=== PATIENT | female | born 1945 | race Caucasian/White ===

== ENCOUNTER 2022-11-09 12:49 | Observation (INO) ==
[2022-11-09 13:34] LABS: Basophils # (auto) 0.04 K/uL (0-0.2); Basophils % (auto) 0.2 %; Hematocrit (blood only) 40.7 % (34.1-44.9); Hemoglobin 13.6 g/dl (12.0-16.0); Immature Granulocytes # (auto) 0.08 K/uL (0.00-0.02); Immature Granulocytes % (auto) 0.5 %; Lymphocytes # (auto) 1.22 K/uL (1.2-3.4); Lymphocytes % (auto) 7.1 %; Mean Corpuscular Hemoglobin 29.6 pg (25.0-34.0); Mean Corpuscular Hgb Conc 33.4 g/dL (32.0-36.0); Mean Corpuscular Volume 88.7 fL (80.0-100.0); Mean Platelet Volume 10.1 fL (9.4-12.3); Monocytes # (auto) 0.95 K/uL (0.24-0.82); Monocytes % (auto) 5.5 %; Neutrophils # (auto) 14.97 K/uL (1.4-6.5); Neutrophils % (auto) 86.7 %; Platelet Count 268 K/uL (130-400); RDW Coefficient of Variation 13.3 % (11.5-14.5); RDW Standard Deviation 43.4 fL (36.4-46.3); Red Blood Count 4.59 M/uL (3.93-5.22); White Blood Count 17.26 K/ul (4.8-10.8)
[2022-11-09 13:54] LABS: Albumin Globulin Ratio 1.4 (0.9-2); Albumin Level 4.5 gm/dl (3.4-5.0); BUN Creatinine Ratio 23.1 (10-20); Bilirubin,Total 0.5 mg/dl (0.2-1.0); Calcium 9.3 mg/dl (8.5-10.1); Creatinine Clr Calc Pharmacy 66.4 ml/min; Est GFR (African American) 86.2 ml/min; Est GFR (Non-African American) 74.4 ml/min; Globulin 3.2 gm/dl (2.5-4.0); Potassium 3.3 mmol/L (3.5-5.1); Total Protein 7.7 gm/dl (6.0-8.3)
[2022-11-09] MEDS ORDERED: SODIUM CHLORIDE 0.9% 1000ML 1,000 ML IV ONE (14:14)
[2022-11-09] MEDS ORDERED: ONDANSETRON INJ 2 MG/ML 2 ML VIAL IV STA (14:14)
[2022-11-09] MEDS ORDERED: MoRPHine SULFATE 4 MG/ML 1 ML CARP\\VIAL IV STA (14:14)
--- NOTE | 2022-11-09 14:22 | Emergency Department Note ---
Impression & Plan Acute cholecystitis, Nausea & vomiting ED Provider Note Provider: Ronald Alonso MD DATE OF SERVICE: 11/09/2022 CHIEF COMPLAINT: Upper abdominal pain, nausea and vomiting HISTORY OF PRESENT ILLNESS: Patient is a 77-year-old female presenting here today referred in the outpatient [facility] clinic due to upper abdominal pain. Evidently pain started yesterday after 6 PM dinner. Was throwing up intermittently all night. Sharp upper abdominal pain. Denies diarrhea. Went to the outpatient clinic office had some Zofran which has helped with nausea some as well as an outpatient x-ray and ultrasound. Ultrasound was concerning for acute cholecystitis and referred to the ER. Denies any trauma history. Denies fever. Distant history of tubal ligation. Tried some Aleve at home but believes she vomited up. Did not keep down anything as far as food today with only some sips of water. PAST MEDICAL HISTORY: As noted above MEDICATIONS: Reviewed home medications includes 81 mg aspirin SOCIAL HISTORY: and lives at home PHYSICAL EXAM: GENERAL: alert and oriented in no acute distress on stretcher Head: normocephalic and atraumatic EYES: No injection, discharge or icterus. NECK: Trachea midline. LUNGS: Airway patent. No retractions or tachypnea HEART: Regular rate and rhythm. ABDOMEN: Soft a with right upper quadrant tenderness. SKIN: Acyanotic, warm, dry, without rashes EXTREMITIES: Without swelling, tenderness or deformity NEUROLOGICAL: No focal deficits. No aphasia. No facial droop or slurred speech. Ambulatory. EK bpm sinus rhythm with PAC. Bit of artifact on the EKG but no clear ST segment elevation or depression with a QTC of 451. Nonspecific T wave changes CONTINUOUS CARDIAC MONITORING: was ordered and showed a heart rate of 60s bpm in normal sinus rhythm Patient's laboratory studies and imaging reviewed. Differential includes Appendicitis, infections, diverticulitis, UTI, obstruction, mesenteric ischemia, aortic pathology, inflammatory bowel disease, renal colic, PUD, pancreatitis, biliary pathology, hernia, volvulus, constipation, as well as other pathologies. IMPRESSION/MEDICAL DECISION MAKING: Reviewed outpatient [facility] ultrasound as well as family medicine note. Ultrasound with thickened gallbladder cholelithiasis and pericholecystic fluid concerning for acute cholecystitis. Blood work from triage with evidence of leukocytosis. Tender in the right upper quadrant and seems consistent likely with acute cholecystitis. Middle ear is without anemia. Borderline hypokalemia. No significant renal dysfunction. No lipase elevation or significant bilirubin elevation. Doubt hepatitis. Negative COVID. Given her history and ultrasound findings believe this is unlikely to represent ACS or PE. Urinalysis not impressive for UTI. Patient kept n.p.o. and given some IV fluids pain medicine and Zofran. Discussed with surgery team for further care and they will bring her in for planned cholecystectomy. I did give her a dose of cefoxitin. 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 Anxiety Esophagitis Social History Smoking Status: Never smoker Preferred Language: Swedish Communication Ability: Effective Hearing Ability: Normal Beliefs That Will Affect Care: None marital status: Current Living Situation: Spouse current occupational status: retired Feels Safe at Home: Yes Allergies Allergies Allergy/AdvReac Type Severity Reaction Status Date / Time acetaminophen Allergy Mild Verified 11/09/22 16:29 carbamazepine Allergy Mild Verified 11/09/22 16:29 Home Meds Home Medications Medication Instructions Recorded Confirmed Lactobacillus acidophilus 100 mg PO DAILY 11/09/22 11/09/22 (Acidophilus capsule) ascorbic acid (vitamin C) 1,000 mg 1 g PO DAILY 11/09/22 11/09/22 tablet aspirin 81 mg tablet,delayed 81 mg PO DAILY 11/09/22 11/09/22 release calcium carbonate 600 mg-vitamin 1 tab PO BID 11/09/22 11/09/22 D3 10 mcg (400 unit) tablet (Calcium 600 + D(3)) cranberry fruit 450 mg tablet 450 mg PO DAILY 11/09/22 11/09/22 (cranberry) escitalopram oxalate 20 mg tablet 20 mg PO DAILY 11/09/22 11/09/22 glucosamine XBy-qej-wwrcnvarglo 1 tab PO DAILY 11/09/22 11/09/22 400 mg-200 mg-333 mg tablet lysine 1,000 mg tablet 1,000 mg PO DAILY 11/09/22 11/09/22 multivit with 1 tab PO DAILY 11/09/22 11/09/22 ojpgmqpl-eruu-NZ-lutein 8 mg iron-400 mcg-300 mcg tablet (Centrum Silver Women) omeprazole 20 mg capsule,delayed 20 mg PO QAM 11/09/22 11/09/22 release valacyclovir 1 gram tablet 1,000 mg PO AMPM 11/09/22 11/09/22 Results & Data (ED) Vital Signs Vital Signs - 24 hr 11/09/22 12:52 11/09/22 14:20 Temperature 36.2 C L Temperature Source Temporal Artery Scan Pulse Rate 61 Pulse Rate [Apical] 62 Pulse Rhythm Regular Pulse Rhythm [Apical] Regular Pulse Strength Normal Pulse Strength [Apical] Normal Respiratory Rate 20 18 Respiratory Effort / Characteristics Non-Labored Spontaneous Non-Labored Spontaneous Respiratory Depth Normal Normal Respiratory Pattern Regular Regular Blood Pressure 133/62 Blood Pressure [Left Arm] 177/84 H Blood Pressure Mean 85 Blood Pressure Mean [Left Arm] 115 Blood Pressure Position Sitting Pulse Oximetry 93 96 Oxygen Delivery Method Room Air Room Air Sepsis Recent Fever Within 48 Hours No Sepsis New/Unexplained Change in Mental Status No Sepsis Action Taken by Nursing No Action Required Laboratory Data 11/09/22 13:20 11/09/22 13:20 Lab Results 11/09/22 11/09/22 11/09/22 Range/Units 13:20 13:20 14:29 WBC 17.26 H (4.8-10.8) K/ul RBC 4.59 (3.93-5.22) M/uL Hgb 13.6 (12.0-16.0) g/dl Hct 40.7 (34.1-44.9) % MCV 88.7 (80.0-100.0) fL MCH 29.6 (25.0-34.0) pg MCHC 33.4 (32.0-36.0) g/dL RDW Std Deviation 43.4 (36.4-46.3) fL RDW Coeff of Annita 13.3 (11.5-14.5) % Plt Count 268 (130-400) K/uL MPV 10.1 (9.4-12.3) fL Immature Gran % (Auto) 0.5 % Neut % (Auto) 86.7 % Lymph % (Auto) 7.1 % Storey % (Auto) 5.5 % Eos % (Auto) 0.0 % Baso % (Auto) 0.2 % Neut # (Auto) 14.97 H (1.4-6.5) K/uL Lymph # (Auto) 1.22 (1.2-3.4) K/uL Storey # (Auto) 0.95 H (0.24-0.82) K/uL Eos # (Auto) 0.00 (0-0.50) K/uL Baso # (Auto) 0.04 (0-0.2) K/uL Immature Gran # (Auto) 0.08 H (0.00-0.02) K/uL Sodium 140 (136-145) mmol/L Potassium 3.3 L (3.5-5.1) mmol/L Chloride 102 (98-107) mmol/L Carbon Dioxide 30 (21-32) mmol/L Anion Gap 8 (3-11) BUN 18 (6-23) mg/dl Creatinine 0.78 (0.6-1.2) mg/dl Est Cr Clr Drug Dosing 66.4 ml/min Est GFR ( Amer) 86.2 ml/min Est GFR (Non-Af Amer) 74.4 ml/min BUN/Creatinine Ratio 23.1 H (10-20) Glucose 125 H (70-99(Fasting)) mg/dl Calcium 9.3 (8.5-10.1) mg/dl Total Bilirubin 0.5 (0.2-1.0) mg/dl AST 34 (13-39) U/L ALT 27 (7-52) U/L Alkaline Phosphatase 110 H (34-104) U/L Total Protein 7.7 (6.0-8.3) gm/dl Albumin 4.5 (3.4-5.0) gm/dl Globulin 3.2 (2.5-4.0) gm/dl Albumin/Globulin Ratio 1.4 (0.9-2) Lipase 13 (11-82) U/L Urine Color Yellow Urine Appearance Cloudy A (Clear) Urine pH 6.0 (4.5-7.5) Ur Specific [place] 1.021 (1.000-1.030) Urine Protein 1+ H (Negative) Urine Glucose (UA) Negative (Negative) Urine Ketones Trace H (Negative) Urine Blood 2+ H (Negative) Urine Nitrite Negative (Negative) Urine Bilirubin Negative (Negative) Urine Urobilinogen Negative (Negative) Ur Leukocyte Esterase Trace H (Negative) Urine WBC (Auto) 10-30 H (0-5) /hpf Urine RBC (Auto) 10-30 H (0-4) /hpf U Hyaline Cast (Auto) 1-5 (0-5) /lpf U Epithel Cells (Auto) 0-5 (0-5) /lpf Urine Bacteria (Auto) 4+ H (Negative) SARS-CoV-2, RNA, NAAT (NEGATIVE) 11/09/22 Range/Units 14:29 WBC (4.8-10.8) K/ul RBC (3.93-5.22) M/uL Hgb (12.0-16.0) g/dl Hct (34.1-44.9) % MCV (80.0-100.0) fL MCH (25.0-34.0) pg MCHC (32.0-36.0) g/dL RDW Std Deviation (36.4-46.3) fL RDW Coeff of Annita (11.5-14.5) % Plt Count (130-400) K/uL MPV (9.4-12.3) fL Immature Gran % (Auto) % Neut % (Auto) % Lymph % (Auto) % [place] % (Auto) % Eos % (Auto) % Baso % (Auto) % Neut # (Auto) (1.4-6.5) K/uL Lymph # (Auto) (1.2-3.4) K/uL [place] # (Auto) (0.24-0.82) K/uL Eos # (Auto) (0-0.50) K/uL Baso # (Auto) (0-0.2) K/uL Immature Gran # (Auto) (0.00-0.02) K/uL Sodium (136-145) mmol/L Potassium (3.5-5.1) mmol/L Chloride (98-107) mmol/L Carbon Dioxide (21-32) mmol/L Anion Gap (3-11) BUN (6-23) mg/dl Creatinine (0.6-1.2) mg/dl Est Cr Clr Drug Dosing ml/min Est GFR ( Amer) ml/min Est GFR (Non-Af Amer) ml/min BUN/Creatinine Ratio (10-20) Glucose (70-99(Fasting)) mg/dl Calcium (8.5-10.1) mg/dl Total Bilirubin (0.2-1.0) mg/dl AST (13-39) U/L ALT (7-52) U/L Alkaline Phosphatase (34-104) U/L Total Protein (6.0-8.3) gm/dl Albumin (3.4-5.0) gm/dl Globulin (2.5-4.0) gm/dl Albumin/Globulin Ratio (0.9-2) Lipase (11-82) U/L Urine Color Urine Appearance (Clear) Urine pH (4.5-7.5) Ur Specific [place] (1.000-1.030) Urine Protein (Negative) Urine Glucose (UA) (Negative) Urine Ketones (Negative) Urine Blood (Negative) Urine Nitrite (Negative) Urine Bilirubin (Negative) Urine Urobilinogen (Negative) Ur Leukocyte Esterase (Negative) Urine WBC (Auto) (0-5) /hpf Urine RBC (Auto) (0-4) /hpf U Hyaline Cast (Auto) (0-5) /lpf U Epithel Cells (Auto) (0-5) /lpf Urine Bacteria (Auto) (Negative) SARS-CoV-2, RNA, NAAT NEGATIVE (NEGATIVE) Administered Medications Sodium Chloride (Nss 1000ml) 1,000 mls @ 100 mls/hr IV .Q10H FOREST Stop: 12/09/22 17:05 Last Admin: 11/09/22 18:08 Dose: 100 mls/hr Documented By: ANABELLE Morphine Sulfate (Morphine Sulfate 4 Mg/Ml 1 Ml Carp\Vial) 4 mg IV Q3H PRN PRN Reason: Pain (6,7,8,9,10) Stop: 11/23/22 17:05 Last Admin: 11/09/22 18:01 Dose: 4 mg Documented By: ANABELLE Ondansetron HCl (Ondansetron Inj 2 Mg/Ml 2 Ml Vial) 4 mg IV Q4H PRN PRN Reason: Nausea And Vomiting Stop: 12/09/22 17:05 Last Admin: 11/09/22 18:01 Dose: 4 mg Documented By: ANABELLE Discontinued Medications Sodium Chloride (Nss 1000ml) 1,000 mls @ 999 mls/hr IV .Q1H1M ONE Stop: 11/09/22 15:14 Last Infusion: 11/09/22 16:32 Dose: 0 mls/hr Documented By: Admin: 11/09/22 14:39 Dose: 999 mls/hr Documented By: CHARLES Cefoxitin Sodium (Mefoxin) 2,000 mg in 60 mls @ 100 mls/hr IV NOW STA Stop: 11/09/22 15:00 Last Infusion: 11/09/22 16:32 Dose: 0 mls/hr Documented By: Admin: 11/09/22 14:41 Dose: 100 mls/hr Documented By: CHARLES Piperacillin Sod/Tazobactam (Sod 4.5 gm/ Dextrose) 120 mls @ 240 mls/hr IV ONE ONE; Protocol Stop: 11/09/22 17:44 Last Admin: 11/09/22 18:29 Dose: 240 mls/hr Documented By: ANABELLE Morphine Sulfate (Morphine Sulfate 4 Mg/Ml 1 Ml Carp\Vial) 4 mg IV NOW STA Stop: 11/09/22 14:15 Last Admin: 11/09/22 14:39 Dose: 4 mg Documented By: CHARLES Ondansetron HCl (Ondansetron Inj 2 Mg/Ml 2 Ml Vial) 4 mg IV NOW STA Stop: 11/09/22 14:15 Last Admin: 11/09/22 14:37 Dose: 4 mg Documented By: CHARLES Discharge Plan Visit Data Chief Complaint: Abdominal Pain Stated Complaint: GALBLADDER PROBLEMS, NAUSEA, ABD PAIN ED Provider: Ronald Alonso Discharge Problem: Acute cholecystitis, Nausea & vomiting Patient Disposition: Admitted As Inpatient Discharge Instructions Interventions: ED Discharge Assessment Last Done: 11/09/22 16:58
[2022-11-09] MEDS ORDERED: cefOXitin 2,000 MG/60 ML BAG IV STA (14:25)
[2022-11-09 14:42] LABS: Appearance Urine Cloudy (Clear); Bacteria Urine Automated 4+ (Negative); Bilirubin Urine Negative (Negative); Blood Urine 2+ (Negative); Color Urine Yellow; Epithelial Cell Urine Auto 0-5 /lpf (0-5); Glucose Urine UA Negative (Negative); Ketones Urine Trace (Negative); Leukocyte Esterase Urine Trace (Negative); Nitrite Urine Negative (Negative); Protein Urine 1+ (Negative); Specific Gravity Urine 1.021 (1.000-1.030); Urobilinogen Urine Negative (Negative)
--- NOTE | 2022-11-09 14:48 | History & Physical Report ---
Date of Service November 09, 2022 Assessment & Plan (1) Acute cholecystitis: Plan: Ultrasound reviewed Clinically she has acute cholecystitis based on her ultrasound and physical exam We will plan on a laparoscopic cholecystectomy, possible open, possible intraoperative cholangiogram Consent was obtained, risk discussed including bleeding, infection, bile leak, ductal injury Will admit the patient to the surgical service Keep n.p.o. give IV antibiotics and IV fluids Pain control and nausea control History of Present Illness Chief Complaint: Abdominal pain Primary Care Provider: America Rojo DO This is a 77-year-old female presented to the ER after an outpatient ultrasound was concerning for acute cholecystitis. She states that late last night she developed some upper abdominal pain with radiation to the right flank and right upper quadrant, sharp in nature started after dinner. She had associated nausea without emesis. She denies any scleral icterus, acholic stools, tea colored urine. She denies any prior abdominal surgeries other than a tubal ligation. She denies any fevers or chills. She does take a baby aspirin. 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 Anxiety Esophagitis Social History Smoking Status: Never smoker Preferred Language: Mongolian Communication Ability: Effective Hearing Ability: Normal Beliefs That Will Affect Care: None marital status: Current Living Situation: Spouse current occupational status: retired Feels Safe at Home: Yes Review of Systems Constitutional: no fever and no chills Eyes: no worsening vision Ear, Nose, Mouth, Throat: no hearing loss Respiratory: no cough and no dyspnea Cardiovascular: no chest pain and no dyspnea on exertion Gastrointestinal: + abdominal pain and + nausea; no vomiting, no constipation and no diarrhea/loose stools Genitourinary: no dysuria Musculoskeletal: no back pain and no neck pain Integumentary: no acne and no skin ulcer Neurologic: no headache(s) Psychiatric: no behavioral changes and no depression Hematologic / Lymphatic: no easy bleeding and no easy bruising Physical Exam Constitutional: WD/WN, vitals as above Eyes: PERRL, conjunctivae normal, anicteric sclerae ENMT: external ear and nose normal, oropharynx normal Neck: trachea midline, no thyromegaly Respiratory: normal respiratory effort, lungs clear to auscultation Cardiovascular: RRR, no murmur, no edema Gastrointestinal (Abdomen): Inspection/Auscultation: abdomen normal to inspection; abdomen not distended Percussion/Palpation: + abdomen tender (Right upper quadrant), + guarding and abdomen soft; abdomen not rigid and no hernia Positive Johnson sign Musculoskeletal: no cyanosis or clubbing, extremities motor strength 5/5 Skin: no rashes, warm and dry Neurologic: PERRL, EOMI, accommodation nl, no face palsy, no dysarthria Psychiatric: A+Ox3, euthymic affect Results & Data Results & Data ([facility]) Vital Signs (Past 12 Hours) Vital Signs Temp Pulse Pulse Resp BP BP Pulse Ox 11/09/22 14:20 62 18 177/84 H 96 11/09/22 12:52 36.2 C L 61 20 133/62 93 O2 Del Method 11/09/22 14:20 Room Air 11/09/22 12:52 Room Air Laboratory Results Outpatient ultrasound reveals a thickened gallbladder wall 4 mm, gallbladder sludge, gallbladder distention and positive sonographic Johnson sign consistent with acute cholecystitis PG Care Time/CCT Total # of Minutes Spent Total Time Spent with Patient: Total time spent is greater than 50% in coordination of care (as documented) at patient's floor/unit and/or counseling patient: Coding Level of Care Code 12910 INT INP/OBS CARE 3/75MIN Diagnoses Acute cholecystitis K81.0
[2022-11-09] MEDS ORDERED: ONDANSETRON INJ 2 MG/ML 2 ML VIAL IV PRN (17:06)
[2022-11-09] MEDS ORDERED: MoRPHine SULFATE 2 MG/ML CARP IV PRN (17:06)
[2022-11-09] MEDS ORDERED: PIPERACILLIN/TAZOBACTAM 4.5 GM in DEXTROSE 5% 100 ML IV ONE (17:15)
[2022-11-09] MEDS: MoRPHine SULFATE 4 MG/ML 1 ML CARP\\VIAL IV PRN (18:01)
[2022-11-09] MEDS: SODIUM CHLORIDE 0.9% 1000ML 1,000 ML IV SCH (18:08)
--- NOTE | 2022-11-09 18:45 | Anesthesiology Consultation ---
Date of Service November 09, 2022 Assessment & Plan Chart Review Chart Review: Acceptable Risk for Surgery and Patient NOT seen in Pre Admission Testing History Surgery Operation Date: 11/09/22 17:25 Proposed Procedures p Laparoscopic Cholecystectomy - Elder Monroy DO Height/Weight Height: 5 ft 6 in Weight: 79.7 kg Allergies Allergy/AdvReac Type Severity Reaction Status Date / Time acetaminophen Allergy Mild Verified 11/09/22 16:29 carbamazepine Allergy Mild Verified 11/09/22 16:29 Medications Home Medications Medication Instructions Recorded Confirmed Last Taken Lactobacillus acidophilus 100 mg PO DAILY 11/09/22 11/09/22 Unknown (Acidophilus capsule) ascorbic acid (vitamin C) 1,000 mg 1 g PO DAILY 11/09/22 11/09/22 Unknown tablet aspirin 81 mg tablet,delayed 81 mg PO DAILY 11/09/22 11/09/22 Unknown release calcium carbonate 600 mg-vitamin 1 tab PO BID 11/09/22 11/09/22 Unknown D3 10 mcg (400 unit) tablet (Calcium 600 + D(3)) cranberry fruit 450 mg tablet 450 mg PO DAILY 11/09/22 11/09/22 Unknown (cranberry) escitalopram oxalate 20 mg tablet 20 mg PO DAILY 11/09/22 11/09/22 Unknown glucosamine MPo-jbh-todkxcohyvt 1 tab PO DAILY 11/09/22 11/09/22 Unknown 400 mg-200 mg-333 mg tablet lysine 1,000 mg tablet 1,000 mg PO DAILY 11/09/22 11/09/22 Unknown multivit with 1 tab PO DAILY 11/09/22 11/09/22 Unknown pizyawix-plkw-RJ-lutein 8 mg iron-400 mcg-300 mcg tablet (Centrum Silver Women) omeprazole 20 mg capsule,delayed 20 mg PO QAM 11/09/22 11/09/22 Unknown release valacyclovir 1 gram tablet 1,000 mg PO AMPM 11/09/22 11/09/22 Unknown Active Medications Generic Name Dose Route Start Last Admin Trade Name Freq PRN Reason Stop Dose Admin Sodium Chloride 1,000 mls @ 100 mls/hr 11/09/22 17:06 11/09/22 18:08 Nss 1000ml IV 12/09/22 17:05 100 mls/hr .Q10H FOREST Administration Morphine Sulfate 4 mg 11/09/22 17:06 11/09/22 18:01 Morphine Sulfate 4 Mg/Ml 1 Ml Carp\Vial IV 11/23/22 17:05 4 mg Q3H PRN Administration Pain (6,7,8,9,10) Ondansetron HCl 4 mg 11/09/22 17:06 11/09/22 18:01 Ondansetron Inj 2 Mg/Ml 2 Ml Vial IV 12/09/22 17:05 4 mg Q4H PRN Administration Nausea And Vomiting Past Medical History Medical History 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 Anxiety Esophagitis Social History Smoking Status: Never smoker Physical Exam Vital Signs Last Vital Signs Temp 36.8 C 11/09/22 16:45 Pulse 70 11/09/22 16:45 Resp 14 11/09/22 16:45 BP 160/76 H 11/09/22 16:45 Pulse Ox 95 11/09/22 16:45 O2 Del Method 11/09/22 16:45 Testing Laboratory Results 11/09/22 13:20 11/09/22 13:20 Urine Color Yellow 11/09/22 14:29 Urine Appearance Cloudy (Clear) A 11/09/22 14:29 Urine pH 6.0 (4.5-7.5) 11/09/22 14:29 Ur Specific [place] 1.021 (1.000-1.030) 11/09/22 14:29 Urine Protein 1+ (Negative) H 11/09/22 14:29 Urine Glucose (UA) Negative (Negative) 11/09/22 14:29 Urine Ketones Trace (Negative) H 11/09/22 14:29 Urine Nitrite Negative (Negative) 11/09/22 14:29 Ur Leukocyte Esterase Trace (Negative) H 11/09/22 14:29 Urine WBC (Auto) 10-30 /hpf (0-5) H 11/09/22 14:29 Urine RBC (Auto) 10-30 /hpf (0-4) H 11/09/22 14:29 U Hyaline Cast (Auto) 1-5 /lpf (0-5) 11/09/22 14:29 U Epithel Cells (Auto) 0-5 /lpf (0-5) 11/09/22 14:29 Urine Bacteria (Auto) 4+ (Negative) H 11/09/22 14:29
[2022-11-09] MEDS: PIPERACILLIN/TAZOBACTAM 3.375 GM in DEXTROSE 5% 100 ML IV SCH (22:59)
[2022-11-10] MEDS: SODIUM CHLORIDE 0.9% 1000ML 1,000 ML IV SCH ×2 (05:30→15:44)
[2022-11-10] MEDS: PIPERACILLIN/TAZOBACTAM 3.375 GM in DEXTROSE 5% 100 ML IV SCH ×3 (06:40→22:21)
[2022-11-10 07:11] LABS: Basophils # (auto) 0.03 K/uL (0-0.2); Basophils % (auto) 0.2 %; Hematocrit (blood only) 38.7 % (34.1-44.9); Hemoglobin 12.9 g/dl (12.0-16.0); Immature Granulocytes # (auto) 0.06 K/uL (0.00-0.02); Immature Granulocytes % (auto) 0.4 %; Lymphocytes % (auto) 8.2 %; Mean Corpuscular Hemoglobin 29.7 pg (25.0-34.0); Mean Corpuscular Hgb Conc 33.3 g/dL (32.0-36.0); Mean Platelet Volume 10.4 fL (9.4-12.3); Monocytes # (auto) 1.55 K/uL (0.24-0.82); Monocytes % (auto) 9.7 %; Neutrophils # (auto) 12.99 K/uL (1.4-6.5); Neutrophils % (auto) 81.5 %; Platelet Count 225 K/uL (130-400); RDW Coefficient of Variation 13.7 % (11.5-14.5); RDW Standard Deviation 44.6 fL (36.4-46.3); Red Blood Count 4.35 M/uL (3.93-5.22); White Blood Count 15.93 K/ul (4.8-10.8)
[2022-11-10 08:11] LABS: Albumin Level 3.6 gm/dl (3.4-5.0); Bilirubin Direct 0.2 mg/dl (0-0.2); Bilirubin,Total 0.7 mg/dl (0.2-1.0); Calcium 8.2 mg/dl (8.5-10.1); Potassium 3.6 mmol/L (3.5-5.1)
[2022-11-10 08:17] LABS: BUN Creatinine Ratio 21.4 (10-20); Creatinine Clr Calc Pharmacy 61.6 ml/min; Est GFR (African American) 78.8 ml/min; Total Protein 6.2 gm/dl (6.0-8.3)
--- NOTE | 2022-11-10 10:52 | Surgery Progress Note ---
Date of Service November 10, 2022 Assessment & Plan (1) Acute cholecystitis: Plan: Proceed with laparoscopic cholecystectomy, possible open, possible intraoperative cholangiogram Consent was obtained, risk discussed including bleeding, infection, bile leak, ductal injury Admission and Anticipated Discharge Date Admission Date: November 09, 2022 Subjective Patient seen and examined. Still with right upper quadrant and epigastric abdominal pain. Low-grade fever. No nausea or vomiting. Review of Systems Constitutional: + fever; no chills Gastrointestinal: + abdominal pain; no nausea and no vomiting Physical Exam Constitutional: WD/WN, vitals as above Eyes: PERRL, conjunctivae normal, anicteric sclerae ENMT: external ear and nose normal, oropharynx normal Neck: trachea midline, no thyromegaly Respiratory: normal respiratory effort, lungs clear to auscultation Cardiovascular: RRR, no murmur, no edema Gastrointestinal (Abdomen): Inspection/Auscultation: abdomen normal to inspection; abdomen not distended Percussion/Palpation: + abdomen tender (Right upper quadrant), + guarding and abdomen soft; abdomen not rigid and no hernia Positive Johnson sign Musculoskeletal: no cyanosis or clubbing, extremities motor strength 5/5 Skin: no rashes, warm and dry Neurologic: PERRL, EOMI, accommodation nl, no face palsy, no dysarthria Psychiatric: A+Ox3, euthymic affect Results & Data ([facility]) Vital Signs (Past 12 Hours) Vital Signs Temp Pulse Pulse Pulse Resp BP Pulse Ox 11/10/22 10:30 38.1 C H 74 20 136/61 97 11/10/22 07:46 37 C 72 18 124/69 91 11/10/22 02:00 18 95 11/09/22 22:56 37.2 C 86 17 120/71 93 O2 Del Method O2 Flow Rate 11/10/22 10:30 Room Air 11/10/22 07:46 Room Air 11/10/22 02:00 Room Air 11/09/22 22:56 Nasal Cannula 2 PG Care Time/CCT Total # of Minutes Spent Total Time Spent with Patient: Total time spent is greater than 50% in coordination of care (as documented) at patient's floor/unit and/or counseling patient: Coding Level of Care Code 78379 SUB INP/OBS CARE 1/25MIN Diagnoses Acute cholecystitis K81.0
[2022-11-10] MEDS ORDERED: PROMETHAZINE HCL 12.5 MG in SODIUM CHLORIDE 0.9% 50 ML IV PRN (11:10)
[2022-11-10] MEDS ORDERED: ePHEDrine sulfate 50 MG/ML AMP IV PRN (11:10)
[2022-11-10] MEDS ORDERED: HYDROmorphone INJ 2 MG/ML SYR/VIAL IV PRN (11:10)
[2022-11-10] MEDS ORDERED: ONDANSETRON INJ 2 MG/ML 2 ML VIAL IV PRN (11:10)
[2022-11-10] MEDS ORDERED: ATROPINE SULFATE 0.1 MG/ML 10ML SYR IV PRN (11:10)
--- NOTE | 2022-11-10 11:20 | Electrocardiogram Report ---
Test Reason : Blood Pressure : / mmHG Vent. Rate : 064 BPM Atrial Rate : 064 BPM P-R Int : 174 ms QRS Dur : 090 ms QT Int : 438 ms P-R-T Axes : 058 024 027 degrees QTc Int : 451 ms Sinus rhythm with Premature atrial complexes Nonspecific ST and T wave abnormality Abnormal ECG No previous ECGs available Confirmed by Jose Breaux ([id number]) on 11/10/2022 11:20:13 AM Referred By: REFERRED SELF Confirmed By:Jose Breaux
[2022-11-10] MEDS ORDERED: fentaNYL citrate 100 MCG/2 ML VIAL ONE ×2 (11:38→13:00)
[2022-11-10] MEDS ORDERED: MIDAZOLAM HCL 1 MG/ML 2ML VIAL ONE (11:38)
[2022-11-10] MEDS ORDERED: BUPIVACAINE/EPINEPHRINE 0.25% 1:200,000 30 ML VIAL ONE (11:51)
[2022-11-10] MEDS ORDERED: PROPOFOL IV EMULSION 10 MG/ML 20 ML VIAL IV ONE (12:25)
[2022-11-10] MEDS ORDERED: DEXAMETHASONE SOD INJ 4 MG/ML VIAL ONE (12:25)
[2022-11-10] MEDS ORDERED: ONDANSETRON INJ 2 MG/ML 2 ML VIAL ONE (12:25)
[2022-11-10] MEDS ORDERED: LIDOCAINE 2% 2 ML VIAL/AMP(20MG/ML) INFIL ONE (12:25)
[2022-11-10] MEDS ORDERED: GLYCOPYRROLATE 0.2 MG/ML VIAL ONE (12:25)
[2022-11-10] MEDS ORDERED: NEOSTIGMINE METHYLSULFATE 1 MG/ML 10ML VIAL ONE (12:25)
[2022-11-10] MEDS ORDERED: FLOSEAL HEMOSTATIC MATRIX 10ML TOP ONE (13:08)
--- NOTE | 2022-11-10 13:39 | Post Operative Brief Note ---
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 Gallbladder Anesthesia Type General Complications none Disposition Disposition: Recovery Room
--- NOTE | 2022-11-10 13:42 | Operative Report ---
PG Post Operative Report Pre & Post Diagnosis Operation Date: 11/10/22 09:45 Pre-Op Diagnosis: Acute cholecystitis Post-Op Diagnosis: Acute gangrenous cholecystitis I identified the patient and participated in the time-out.: Yes Procedure Operation Date: 11/10/22 09:45 Actual Procedures p Laparoscopic Cholecystectomy(Not Applicable) - Elder Monroy DO Surgeon Elder Monroy DO Assistant Operator Nathaly Lowry PA-C Estimated Blood Loss 50 Findings See Below Acutely inflamed, dilated gallbladder with thickened wall Fluids see anesthesia record Specimens Gallbladder to pathology Drains None Anesthesia Type General Complications none Disposition Disposition: Recovery Room Indications 77-year-old female with acute cholecystitis Description of Procedure The patient was brought to the operating room and placed in the supine position with both arms extended. At this time she underwent general endotracheal anesthesia without any problems. She was given appropriate pre-operative antibiotics. Her abdomen prepped and draped in the usual sterile fashion. A timeout was called, the procedure was verified as Laparoscopic cholecystectomy, possible open, possible intra-operative cholangiogram. Surgical, nursing and anesthesia teams agreed and the procedure was begun. After injection of 0.25% Marcaine with epinephrine, a supraumbilical vertical incision was made and carried down to the fascia using S-retractors. The abdominal wall was then elevated with towel clamps and abdomen entered using the Veress needle confirming position using the saline drop test. Pneumoperitoneum was established. 5mm trocar was placed. Laparoscope was introduced. No injury from entry into the abdomen was visualized after inspection of the abdomen. Three further ports were placed under direct visualization. One 11mm in the subxiphoid region and two 5mm in the RUQ. At this time the abdomen was inspected and the gallbladder identified. The gallbladder itself was inflamed had a thickened wall and was severely dilated. We then decompressed the gallbladder using a needle through one of the right upper quadrant ports. Pus was aspirated from the gallbladder. The gallbladder fundus was grasped and retracted cephalad. The gallbladder infundibulum was then grasped and retracted laterally. The cystic duct and cystic artery were then identified and skeletonized. The critical view of safety was obtained. They were both then cl ipped twice proximally and once distally and then divided using scissors. The gallbladder was then taken off of the liver bed using electrocautery and placed in an endocatch bag and removed from the subxiphoid port. The liver bed was then inspected and no bile leak or bleeding was evident. The subxiphoid port was then closed using 0-Vicryl using the suture passer. The trocars were then removed under direct visualization and no bleeding was present. Abdomen was desufflated. The skin was then closed using 4-0 Monocryl in a subcuticular fashion. Surgical glue was applied. Needle and sponge counts were correct x 2. At this time the patient was awoken from anesthesia and extubated having remained stable throughout the entire case. The patient was then transported to PACU in stable condition. The physician real estate administrative assistant was present scrubbed the entire case. She was essential in positioning, prepping draping the patient, driving the laparoscope, retraction and exposure, closure of the incisions and placement the dressings. I attest to the content of the Intraoperative Record and any orders documented therein. Any exceptions are noted below.
[2022-11-10] MEDS: fentaNYL citrate 100 MCG/2 ML VIAL IV PRN ×4 (14:21→14:38)
--- NOTE | 2022-11-10 14:48 | Anesthesiology Progress Note ---
Date of Service November 10, 2022 Anesthesia Post Procedure Vital Signs Vital Signs: Temp Pulse Pulse Pulse Resp BP Pulse Ox 11/10/22 14:15 65 12 131/53 L 97 11/10/22 14:05 69 18 124/47 L 95 11/10/22 13:55 71 20 142/60 H 98 11/10/22 13:47 36.0 C L 85 22 128/55 L 95 11/10/22 10:30 38.1 C H 74 20 136/61 97 11/10/22 07:46 37 C 72 18 124/69 91 11/10/22 02:00 18 95 11/09/22 22:56 37.2 C 86 17 120/71 93 11/09/22 16:45 36.8 C 70 14 160/76 H 95 11/09/22 16:15 68 16 162/78 H 93 O2 Del Method O2 Flow Rate 11/10/22 14:15 Nasal Cannula 3 11/10/22 14:05 Nasal Cannula 3 11/10/22 13:55 Oxymask 10 11/10/22 13:47 Oxymask 10 11/10/22 10:30 Room Air 11/10/22 07:46 Room Air 11/10/22 02:00 Room Air 11/09/22 22:56 Nasal Cannula 2 11/09/22 16:45 Room Air 11/09/22 16:15 Room Air Pain Intensity Right Upper Abdomen: Pain Intensity: 6 Abdomen: Pain Intensity: 5 Transfer of Care Handoff Completed per policy Notes Mental Status: alert / awake / arousable and participated in evaluation Patient Amnestic to Procedure: Yes Nausea / Vomiting: adequately controlled Pain: adequately controlled Airway Patency, RR, SpO2: stable & adequate BP & HR: stable & adequate Hydration State: stable & adequate Anesthetic Complications: no major complications apparent
[2022-11-10] MEDS ORDERED: oxyCODONE HCL IR 5 MG TAB (IMMEDIATE RELEASE) PO PRN (15:37)
[2022-11-10] MEDS: MoRPHine SULFATE 4 MG/ML 1 ML CARP\\VIAL IV PRN (15:44)
[2022-11-10] MEDS: oxyCODONE HCL IR 5 MG TAB (IMMEDIATE RELEASE) PO PRN (19:35)
[2022-11-10] MEDS: LACTATED RINGER'S 1,000 ML IV SCH (21:06)
[2022-11-11] MEDS: oxyCODONE HCL IR 5 MG TAB (IMMEDIATE RELEASE) PO PRN ×4 (01:47→20:20)
[2022-11-11] MEDS: PIPERACILLIN/TAZOBACTAM 3.375 GM in DEXTROSE 5% 100 ML IV SCH (06:24)
[2022-11-11 07:54] LABS: Basophils # (auto) 0.02 K/uL (0-0.2); Basophils % (auto) 0.1 %; Eosinophils # (auto) 0.01 K/uL (0-0.50); Eosinophils % (auto) 0.1 %; Hematocrit (blood only) 36.7 % (34.1-44.9); Hemoglobin 11.8 g/dl (12.0-16.0); Immature Granulocytes # (auto) 0.08 K/uL (0.00-0.02); Immature Granulocytes % (auto) 0.5 %; Lymphocytes # (auto) 1.73 K/uL (1.2-3.4); Lymphocytes % (auto) 11.2 %; Mean Corpuscular Hemoglobin 29.2 pg (25.0-34.0); Mean Corpuscular Hgb Conc 32.2 g/dL (32.0-36.0); Mean Corpuscular Volume 90.8 fL (80.0-100.0); Mean Platelet Volume 10.6 fL (9.4-12.3); Monocytes # (auto) 1.21 K/uL (0.24-0.82); Monocytes % (auto) 7.8 %; Neutrophils # (auto) 12.43 K/uL (1.4-6.5); Neutrophils % (auto) 80.3 %; Platelet Count 258 K/uL (130-400); RDW Coefficient of Variation 13.9 % (11.5-14.5); RDW Standard Deviation 46.5 fL (36.4-46.3); Red Blood Count 4.04 M/uL (3.93-5.22); White Blood Count 15.48 K/ul (4.8-10.8)
[2022-11-11 08:38] LABS: Albumin Level 3.4 gm/dl (3.4-5.0); Bilirubin Direct 0.1 mg/dl (0-0.2); Bilirubin,Total 0.5 mg/dl (0.2-1.0); Calcium 8.7 mg/dl (8.5-10.1); Potassium 3.5 mmol/L (3.5-5.1)
[2022-11-11 08:44] LABS: Creatinine Clr Calc Pharmacy 56.3 ml/min; Est GFR (African American) 70.6 ml/min; Est GFR (Non-African American) 60.9 ml/min; Total Protein 6.1 gm/dl (6.0-8.3)
[2022-11-11] MEDS: PANTOprazole 40 MG TAB PO SCH (09:48)
[2022-11-11] MEDS: ESCITALOPRAM OXALATE 20 MG TAB PO SCH (09:48)
--- NOTE | 2022-11-11 13:04 | Surgery Progress Note ---
Date of Service November 11, 2022 Assessment & Plan (1) Acute cholecystitis: Plan: POD #1 s/p Lap Zac with Dr. Monroy. She is doing well. Afebrile. Tolerating a low fat diet. Pain is well-controlled. Will transition patient to PO antibiotics in anticipation of discharge. Discharge instructions reviewed with patient by Dr. Spencer. She will follow-up with Dr. Monroy in clinic in the next 1-2 weeks. She is aware that she will continue antibiotics at home when she is discharged. If patient continues to do well, possible discharge later today or tomorrow morning. Patient seen and examined with Dr. Spencer. Admission and Anticipated Discharge Date Admission Date: November 09, 2022 Supervising Physician Co-Signing Physician Notes Patient seen examined, agree with above. POD #1 lap zac, doing well. DC on oral antibiotics, wound care instructions, activity restrictions, return precautions given. Follow-up with Dr. Monroy. Subjective Yesy is resting comfortably in bed. She is doing well, tolerating a low fat diet. She does report some expected abdominal pain near incision sites. She denies any nausea or vomiting. Review of Systems Constitutional: no fever and no chills Respiratory: no cough and no dyspnea Gastrointestinal: + abdominal pain (at incisional sites. ); no nausea and no vomiting Physical Exam Constitutional: WD/WN, vitals as above Respiratory: normal respiratory effort; no respiratory distress and no labored breathing Gastrointestinal (Abdomen): abdominal incisions with steri-strips in place. incisions are clean, dry, intact and well-approximated. No signs of active bleeding. She is appropriately tender at incision sites. Psychiatric: A+Ox3, euthymic affect Results & Data ([facility]) Vital Signs (Past 12 Hours) Vital Signs Temp Pulse Resp BP Pulse Ox O2 Del Method O2 Flow Rate 11/11/22 07:35 36.5 C 60 18 121/71 93 Nasal Cannula 1 11/11/22 02:31 36.7 C 60 18 130/72 93 Room Air PG Care Time/CCT Total # of Minutes Spent Total Time Spent with Patient: Total time spent is greater than 50% in coordination of care (as documented) at patient's floor/unit and/or counseling patient: Coding Level of Care Code 22033 Post Operative Follow-Up Diagnoses Acute cholecystitis K81.0
[2022-11-11] MEDS: LACTATED RINGER'S 1,000 ML IV SCH (15:26)
--- NOTE | 2022-11-11 15:26 | Hospitalist Consultation ---
Date of Consultation November 11, 2022 History of Present Illness Attending Physician: Elder Monroy, DO History of Present Illness Yesy is a 77-year-old female with a past medical history of anxiety, esophagitis who presented emergency department 11/09 for acute cholecystitis and who underwent uncomplicated laparoscopic cholecystectomy on 11/10/2022. Acute hypoxic respiratory failure CXR [] Telemetry EKG: Sinus, QTC 426, no tachycardia, no [id number]. No ST segment changes or acute T wave inversions. No signs of right-sided heart strain. - No tachycardia and preceding 48 hours, rate currently in 60s. Leukocytosis downtrending from 17, currently 15.48 in the setting of cholecystitis. Currently on Augmentin narrowed from Zosyn DVT prophylaxis [] Creatinine with normal baseline, 0.19 on admission, ratio 25 Acute cholecystitis S/p Lap cholecystectomy with Dr. Monroy 11/10/2022. Diet advanced to low-fat, was placed on fluids yesterday, discontinued History of anxiety Escitalopram 20 mg daily Allergies Allergy/AdvReac Type Severity Reaction Status Date / Time acetaminophen Allergy Mild Verified 11/09/22 16:29 carbamazepine Allergy Mild Verified 11/09/22 16:29 Home Medications Medication Instructions Recorded Confirmed Type Lactobacillus acidophilus 100 mg PO DAILY 11/09/22 11/09/22 History (Acidophilus capsule) ascorbic acid (vitamin C) 1,000 mg 1 g PO DAILY 11/09/22 11/09/22 History tablet aspirin 81 mg tablet,delayed 81 mg PO DAILY 11/09/22 11/09/22 History release calcium carbonate 600 mg-vitamin 1 tab PO BID 11/09/22 11/09/22 History D3 10 mcg (400 unit) tablet (Calcium 600 + D(3)) cranberry fruit 450 mg tablet 450 mg PO DAILY 11/09/22 11/09/22 History (cranberry) escitalopram oxalate 20 mg tablet 20 mg PO DAILY 11/09/22 11/09/22 History glucosamine ANj-sfa-ugnohhbnlug 1 tab PO DAILY 11/09/22 11/09/22 History 400 mg-200 mg-333 mg tablet lysine 1,000 mg tablet 1,000 mg PO DAILY 11/09/22 11/09/22 History multivit with 1 tab PO DAILY 11/09/22 11/09/22 History osyvxorn-tlqq-VV-lutein 8 mg iron-400 mcg-300 mcg tablet (Centrum Silver Women) omeprazole 20 mg capsule,delayed 20 mg PO QAM 11/09/22 11/09/22 History release valacyclovir 1 gram tablet 1,000 mg PO AMPM 11/09/22 11/09/22 History amoxicillin 875 mg-potassium 1 tab PO BID #14 tabs 11/10/22 Rx clavulanate 125 mg tablet oxycodone 5 mg tablet 5 - 10 mg PO .[id number] PRN pain, 11/10/22 Rx for initial therapy, max 6 tabs per day #15 tabs Patient History Medical History 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 Anxiety Esophagitis Social History Smoking Status: Never smoker Hx Alcohol Use: No Hx Substance Use: No Preferred Language: Sri Lankan Communication Ability: Effective Hearing Ability: Normal Manager Study Required: No Beliefs That Will Affect Care: None marital status: Current Living Situation: Spouse current occupational status: retired Other Information That Helps Us Care for You: No Feels Safe at Home: Yes Safety Concerns: Feels Safe At This Time Assistive Devices: None Results & Data Results & Data ([facility]) Vital Signs (Past 12 Hours) Vital Signs Temp Pulse Resp BP Pulse Ox O2 Del Method O2 Flow Rate 11/11/22 07:35 36.5 C 60 18 121/71 93 Nasal Cannula 1 PG Care Time/CCT Total # of Minutes Spent Total Time Spent with Patient: Total time spent is greater than 50% in coordination of care (as documented) at patient's floor/unit and/or counseling patient: Coding
--- NOTE | 2022-11-11 15:38 | XRay Report ---
XR chest 1V portable CLINICAL HISTORY: hypoxia TECHNIQUE: Single frontal radiograph of the chest was obtained. Comparison: None available at the time of this dictation. FINDINGS: No lines and tubes are seen. Cardiomegaly is noted. Prominence and cephalization of the vasculature i s seen. No evidence of pleural effusion or pneumothorax. IMPRESSION: Cardiomegaly and mild pulmonary edema. ACT 112: Negative or not required by law. Electronically signed by: Tutu Blevins M.D. 11/11/2022 3:37 PM
--- NOTE | 2022-11-11 15:38 | Electrocardiogram Report ---
Test Reason : Blood Pressure : / mmHG Vent. Rate : 076 BPM Atrial Rate : 076 BPM P-R Int : 166 ms QRS Dur : 086 ms QT Int : 376 ms P-R-T Axes : 072 -12 -14 degrees QTc Int : 423 ms Poor data quality, interpretation may be adversely affected Sinus rhythm with Premature atrial complexes RSR' or QR pattern in V1 suggests right ventricular conduction delay Nonspecific T wave abnormality Abnormal ECG When compared with ECG of 09-NOV-2022 14:25, No significant change was found Confirmed by Maxwell Aldana ([id number]) on 11/11/2022 3:38:24 PM Referred By: REFERRED SELF Confirmed By:Maxwell Aldana
--- NOTE | 2022-11-11 15:47 | Consultation ---
Date of Consultation November 11, 2022 Assessment & Plan (1) Acute cholecystitis: (2) Hypoxia: (3) Anxiety: (4) CAD (coronary artery disease): Plan 77-year-old status post acute cholecystectomy with hypoxia postop day #1. CXR reveals pulmonary edema and crackles auscultated posteriorly on examination. Echo 2019 grade 2 diastolic dysfunction. BNP pending creatinine 0.92. Will administer Lasix 40 mg IV once, chest x-ray in morning with BMP to monitor renal function. Fluid overload: Hypoxia: -SPO2 87% RA -Received fluids postop; currently stopped -Chest x-ray mild pulmonary edema -Administer Lasix 40 mg IV once -BNP pending -Monitor creatinine; currently 0.92; trend in a.m. -Incentive spirometry -Purewick for I/O Acute cholecystitis: -POD# 1 s/p laparoscopic cholecystectomy with Dr. Monroy -EBL 50mL -Per general surgery for pain control, wound care, anticoagulation and activities. -Monitor H&H; trend in AM -PT/OT when appropriate CAD: -Takes baby aspirin; continue -Echo 2019 EF 62%; grade 2 diastolic dysfunction and moderate tricuspid regurgitation -BNP pending -Recommend repeat echo as outpatient, or sooner if no improvement. Depression: -Takes Lexapro; continue A total of 36 minutes was spent with greater than 50% of that time personally reviewing all current laboratory work and diagnostic imaging studies obtained in the ED. Additionally, I was able to review the patients past medication reconciliation and history with direct visualization in the patients chart. Included in the time above, a portion of that time was spent assessing the p atient while discussing and collaborating with specialists, if necessary, and making medical decisions regarding orders to be placed. All of the aforementioned completed while collaborating with Dr. Byrd for a full treatment plan. Please see his addendum for further details. Supervising Physician Co-Signing Physician Notes delayed entry date of service noted above Attending Addendum: care coordinated with GAURAV Jagn please refer to her notes for full details, I agree with her notes patient seen and examined, records reviewed by myself as well on exam, patient seen sitting up in bed, on 2 L NC states she has mild dyspnea no cough, fever/chills also has some abdominal discomfort with deep inspiration no other symptoms VS noted and reviewed oriented 3 , not in distress, speaks in sentences with no effort nor accessory muscle use normal rate, regular rhythm, no murmurs (+) mild rales BL no wheezing non distended, soft, nontender no bipedal edema, erythema, warmth no neuro deficits lanbs noted and reviewed ASSESSMENT AND PLAN ACUTE HYPOXIA LIKELY SECONDARY TO VOLUME OVERLOAD Lasix 40mg IV 1 dose given encouraged frequent incentive spirometry monitor Is and Os other diagnoses and plan of care as per GAURAV Jang's notes Deric Byrd MD History of Present Illness Requesting Physician: Dr. Monroy Reason for Consultation: Postop medical management Attending Physician: Elder Monroy DO History of Present Illness 77-year-old presented to the [facility] with abdominal pain and after an outpatient ultrasound was performed. Ultrasound revealed concern for acute cholecystitis for which she proceeded under the care of Dr. Monroy for a laparoscopic cholecystectomy yesterday. Prior to surgery she was experiencing nausea without vomiting. Postoperatively, she started to experience hypoxia postop day #1. Chest x-ray reveals pulmonary edema and crackles auscultated posteriorly on examination. Additional past medical history includes CAD and depression. Echo 2019 grade 2 diastolic dysfunction. Patient sitting in her hospital bed with some distress. Patient hypoxic 88% on room air; SPO2 92% on 1 L nasal cannula. Patient AAO x4 and able to answer all questions appropriately in a meaningful manner. Patient's son Inderjit and Davey are at her bedside. CXR indicated pulmonary edema; patient was receiving IV fluids postoperatively which has been discontinued. Will administer Lasix 40 mg IV once, chest x-ray in morning with BMP to monitor renal function. BNP pending creatinine 0.92. [facility] hospitalist service was consulted for postoperative medical management. We are available via [employer] text 14/05 for additional assistance. Allergies Allergy/AdvReac Type Severity Reaction Status Date / Time acetaminophen Allergy Mild Verified 11/09/22 16:29 carbamazepine Allergy Mild Verified 11/09/22 16:29 Home Medications Medication Instructions Recorded Confirmed Type Lactobacillus acidophilus 100 mg PO DAILY 11/09/22 11/11/22 History (Acidophilus capsule) ascorbic acid (vitamin C) 1,000 mg 1 g PO DAILY 11/09/22 11/11/22 History tablet aspirin 81 mg tablet,delayed 81 mg PO DAILY 11/09/22 11/11/22 History release calcium carbonate 600 mg-vitamin 1 tab PO BID 11/09/22 11/11/22 History D3 10 mcg (400 unit) tablet (Calcium 600 + D(3)) cranberry fruit 450 mg tablet 450 mg PO DAILY 11/09/22 11/11/22 History (cranberry) escitalopram oxalate 20 mg tablet 20 mg PO DAILY 11/09/22 11/11/22 History glucosamine HEu-qfc-csllzwoojbz 1 tab PO DAILY 11/09/22 11/11/22 History 400 mg-200 mg-333 mg tablet lysine 1,000 mg tablet 1,000 mg PO DAILY 11/09/22 11/11/22 History multivit with 1 tab PO DAILY 11/09/22 11/11/22 History eosymjrf-qdow-OW-lutein 8 mg iron-400 mcg-300 mcg tablet (Centrum Silver Women) omeprazole 20 mg capsule,delayed 20 mg PO QAM 11/09/22 11/11/22 History release valacyclovir 1 gram tablet 1,000 mg PO AMPM 11/09/22 11/11/22 History amoxicillin 875 mg-potassium 1 tab PO BID #14 tabs 11/10/22 11/11/22 Rx clavulanate 125 mg tablet oxycodone 5 mg tablet 5 - 10 mg PO .[id number] PRN pain, 11/10/22 11/11/22 Rx for initial therapy, max 6 tabs per day #15 tabs potassium chloride 20 mEq 40 meq PO DAILY 3 days #6 tabs 11/12/22 Rx tablet,extended release Patient History Medical History (Updated 11/11/22 @ 16:12 by TERRENCE Saldivar) Acute cholecystitis 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 Anxiety CAD (coronary artery disease) Esophagitis Hypoxia Surgical History (Updated 11/13/22 @ 10:27 by Jade Rivero RN) Hx laparoscopic cholecystectomy (11/10/22) Laparoscopic Cholecystectomy(Not Applicable) - Elder Monroy DO Social History Smoking Status: Never smoker Hx Alcohol Use: No Hx Substance Use: No Preferred Language: Luxembourgish Communication Ability: Effective Visual Impairment: No Limitations Hearing Ability: Normal Chinese Instructor Required: No Beliefs That Will Affect Care: None marital status: Current Living Situation: Spouse current occupational status: retired Feels Safe at Home: Yes Assistive Devices: None Review of Systems Review of Systems: Neuro: (-) Falls, trauma, slurred speech HEENT: (-) MOORE, dizziness, dysphagia, visual or auditory changes CV: (-) CP, palpitations, swelling Resp: (+) SOB GI: (-) appetite changes, N/V/D, bowel changes (+) distenstion post op : (-) urinary changes Skin: (-) rashes (+) laproscopic incision x4. Dressing C/D/I Psych: (-) anxiety, depression (+) incisional pain Physical Exam Physical Exam: Neuro: AAOx4, PERRLA, no aphagia, memory changes, CNII-XII grossly intact. HEENT: head normocephalic, moist mucus membranes CV: S1/S2, (-) M/G/R, (-) edema, cap refill < 3 seconds Resp: Lungs crackles L > R posteriorly. On 1LNC. GI: Abdomen large, tympanic, tender, Ax4 bowel sounds, (-) CVA tenderness Musculoskeletal: 5/5 B/L UE strength, 5/5 B/L LE strength. No gait disturbance Skin: (-) rashes , (-) erythema. Psych: euthymic mood Results & Data ([facility]) Vital Signs (Past 12 Hours) Vital Signs Temp Pulse Resp BP Pulse Ox O2 Del Method O2 Flow Rate 11/11/22 15:37 36.8 C 76 18 125/76 94 Nasal Cannula 1 11/11/22 07:35 36.5 C 60 18 121/71 93 Nasal Cannula 1 Laboratory Results Short CBC 11/11/22 Range/Units 07:10 WBC 15.48 H (4.8-10.8) K/ul Hgb 11.8 L (12.0-16.0) g/dl Hct 36.7 (34.1-44.9) % Plt Count 258 (130-400) K/uL BMP 11/11/22 07:10 Sodium 138 Potassium 3.5 Chloride 106 Carbon Dioxide 28 BUN 23 Creatinine 0.92 Glucose 105 H Calcium 8.7 Liver Function 11/11/22 Range/Units 07:10 Total Bilirubin 0.5 (0.2-1.0) mg/dl Direct Bilirubin 0.1 (0-0.2) mg/dl AST 29 (13-39) U/L ALT 34 (7-52) U/L Alkaline Phosphatase 88 (34-104) U/L Albumin 3.4 (3.4-5.0) gm/dl Diagnostic Findings Chest X-Ray 11/11/22 15:15 XR chest 1V portable CLINICAL HISTORY: hypoxia TECHNIQUE: Single frontal radiograph of the chest was obtained. Comparison: None available at the time of this dictation. FINDINGS: No lines and tubes are seen. Cardiomegaly is noted. Prominence and cephalization of the vasculature is seen. No evidence of pleural effusion or pneumothorax. IMPRESSION: Cardiomegaly and mild pulmonary edema. ACT 112: Negative or not required by law. Electronically signed by: Tutu Blevins M.D. 11/11/2022 3:37 PM
[2022-11-11] MEDS ORDERED: FUROSEMIDE 40 MG/4 ML VIAL IV ONE (15:54)
[2022-11-11] MEDS: AMOXICILLIN/CLAVULANATE 875 MG TAB PO SCH (18:15)
[2022-11-12 06:33] LABS: Basophils # (auto) 0.03 K/uL (0-0.2); Basophils % (auto) 0.3 %; Eosinophils # (auto) 0.27 K/uL (0-0.50); Eosinophils % (auto) 2.5 %; Hematocrit (blood only) 34.9 % (34.1-44.9); Hemoglobin 11.4 g/dl (12.0-16.0); Immature Granulocytes # (auto) 0.04 K/uL (0.00-0.02); Immature Granulocytes % (auto) 0.4 %; Lymphocytes # (auto) 1.92 K/uL (1.2-3.4); Lymphocytes % (auto) 17.6 %; Mean Corpuscular Hemoglobin 29.1 pg (25.0-34.0); Mean Corpuscular Hgb Conc 32.7 g/dL (32.0-36.0); Mean Platelet Volume 10.7 fL (9.4-12.3); Monocytes # (auto) 0.95 K/uL (0.24-0.82); Monocytes % (auto) 8.7 %; Neutrophils # (auto) 7.71 K/uL (1.4-6.5); Neutrophils % (auto) 70.5 %; Platelet Count 258 K/uL (130-400); RDW Coefficient of Variation 13.6 % (11.5-14.5); RDW Standard Deviation 44.5 fL (36.4-46.3); Red Blood Count 3.92 M/uL (3.93-5.22); White Blood Count 10.92 K/ul (4.8-10.8)
[2022-11-12 07:49] LABS: Calcium 8.4 mg/dl (8.5-10.1); Magnesium 1.9 mg/dl (1.7-2.4); Potassium 3.2 mmol/L (3.5-5.1)
[2022-11-12 07:54] LABS: BUN Creatinine Ratio 22.9 (10-20); Creatinine Clr Calc Pharmacy 62.4 ml/min; Est GFR (African American) 79.9 ml/min
[2022-11-12] MEDS: PANTOprazole 40 MG TAB PO SCH (09:05)
[2022-11-12] MEDS: AMOXICILLIN/CLAVULANATE 875 MG TAB PO SCH (09:05)
[2022-11-12] MEDS: oxyCODONE HCL IR 5 MG TAB (IMMEDIATE RELEASE) PO PRN (09:05)
[2022-11-12] MEDS: ESCITALOPRAM OXALATE 20 MG TAB PO SCH (09:05)
--- NOTE | 2022-11-12 09:48 | Surgery Progress Note ---
Date of Service November 12, 2022 Assessment & Plan (1) Acute cholecystitis: Plan: POD #2 s/p Lap Zac with Dr. Monroy. She is doing well. Tolerating a low fat diet. VSS. She is doing well on RA. Remove adamson catheter, encouraged incentive spirometer. Discharge instructions once again reviewed with patient by Dr. Spencer. Patient seen and examined with Dr. Spencer. Ok for discharge today pending hospitalist recommendations. POD #1 s/p Lap Zac with Dr. Monroy. She is doing well. Afebrile. Tolerating a low fat diet. Pain is well-controlled. Will transition patient to PO antibiotics in anticipation of discharge. Discharge instructions reviewed with patient by Dr. Spencer. She will follow-up with Dr. Monroy in clinic in the next 1-2 weeks. She is aware that she will continue antibiotics at home when she is discharged. If patient continues to do well, possible discharge later today or tomorrow morning. Patient seen and examined with Dr. Spencer. Admission and Anticipated Discharge Date Admission Date: November 09, 2022 Supervising Physician Co-Signing Physician Notes Patient seen and examined, agree with above. POD #2 lap zac with Porfirio, some hypoxia yesterday requiring 2 L oxygen. Chest x-ray showed some pulmonary edema and medicine was consulted. They gave some Lasix. She was recently switched to room air. Otherwise she is doing well. Exam she is afebrile stable vitals, satting well on room air, abdomen soft, nontender. Likely discharge this afternoon pending medicine recommendations. Subjective Yesy is resting comfortably in bed and breathing well on room air. She is doing well, tolerating a low fat diet. She does report some expected abdominal pain near incision sites. She denies any nausea or vomiting. Hospitalist was consulted yesterday for hypoxia. CXR showed pulmonary edema, 40mg Lasix given and catheter placed. Review of Systems Constitutional: no fever and no chills Respiratory: no cough and no dyspnea Gastrointestinal: + abdominal pain (at incisional sites. ); no nausea and no vomiting Physical Exam Constitutional: WD/WN, vitals as above Respiratory: normal respiratory effort; no respiratory distress and no labored breathing Psychiatric: A+Ox3, euthymic affect Results & Data ([facility]) Vital Signs (Past 12 Hours) Vital Signs Temp Pulse Resp BP Pulse Ox O2 Del Method O2 Flow Rate 11/12/22 07:26 37 C 68 16 128/73 94 Nasal Cannula 2 11/12/22 04:00 36.6 C 75 18 141/74 H 93 Nasal Cannula 2 11/12/22 00:00 36.7 C 72 18 102/65 94 Nasal Cannula 2 PG Care Time/CCT Total # of Minutes Spent Total Time Spent with Patient: Total time spent is greater than 50% in coordination of care (as documented) at patient's floor/unit and/or counseling patient: Coding Level of Care Code None Diagnoses Acute cholecystitis K81.0
[2022-11-12] MEDS ORDERED: FUROSEMIDE 40 MG TAB PO ONE (10:39)
[2022-11-12] MEDS ORDERED: POTASSIUM CHLORIDE CRTAB 20 MEQ TABCR PO STA (10:40)
--- NOTE | 2022-11-12 10:42 | XRay Report ---
XR chest 1V portable HISTORY: 77 years-old Female ff up pulmonary vascular congestion acute shortness of breath COMPARISON: Chest radiograph November 11, 2022 TECHNIQUE: AP view of the chest FINDINGS: Cardiac silhouette is enlarged. Pulmonary vascular congestion with mild interstitial coarsening, stab le to yesterday's exam. Trace pleural effusions with mild bibasilar densities. No pneumothorax. 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 IMPRESSION: 1. Cardiomegaly with unchanged mild pulmonary edema. 2. Trace pleural effusions with mild bibasilar densities favoring atelectasis. ACT 112: Negative or not required by law. The above report was generated using voice recognition software. It may contain grammatical, syntax o r spelling errors. Electronically signed by: Jose Lopez M.D. 11/12/2022 10:41 AM
--- NOTE | 2022-11-13 15:54 | Hospitalist Progress Note ---
Date of Service November 13, 2022 delayed entry date of service 11/12/22 Assessment & Plan (1) Acute cholecystitis: (2) Hypoxia: (3) Anxiety: (4) CAD (coronary artery disease): Plan 77-year-old status post acute cholecystectomy with hypoxia postop day #1. CXR reveals pulmonary edema and crackles auscultated posteriorly on examination. Echo 2019 grade 2 diastolic dysfunction. BNP pending creatinine 0.92. Will administer Lasix 40 mg IV once, chest x-ray in morning with BMP to monitor renal function. Fluid overload: Hypoxia: Resolved denies dyspnea one dose of PO Lasix 40mg given ff up with PCP and Gen Surg in 1 week Acute cholecystitis: for dc today per Gen Surg CAD: -Takes baby aspirin; continue -Echo 2019 EF 62%; grade 2 diastolic dysfunction and moderate tricuspid regurgitation Depression: -Takes Lexapro; continue plan of care discussed with patient and her in detail and at length all questions answered they are understanding, agreeable, comfortable with the plan of care Admission and Anticipated Discharge Date Admission Date: November 12, 2022 Subjective ff up for s/p lap zac, volume overload, etc seen resting in bed, comfortable on room air states she feels much better overall dyspnea resolved no chest pain, palpitations, dizziness, cough, fever/chills no other symptoms states she is ready and would like to be discharged Review of Systems Review of Systems: all noted and negative except for above Physical Exam Physical Exam: General- oriented x 3, not in distress, speaks in sentences with no effort or accessory muscle use Eyes- anicteric Neck- no JVD Lungs- faint rales at the bases no wheezing Heart- normal rate, regular rhythm; no murmurs Abdomen- normal bowel sounds, nondistended, soft, nontender Extremities- no pretibial edema, no calf tenderness Neuro- alert, oriented x 3; no gross focal neurologic deficits Skin- warm & dry
--- NOTE | 2022-11-14 08:23 | Discharge Summary ---
Date of Service November 12, 2022 Admission HPI Per Admitting Provider This is a 77-year-old female presented to the ER after an outpatient ultrasound was concerning for acute cholecystitis. She states that late last night she developed some upper abdominal pain with radiation to the right flank and right upper quadrant, sharp in nature started after dinner. She had associated nausea without emesis. She denies any scleral icterus, acholic stools, tea colored urine. She denies any prior abdominal surgeries other than a tubal ligation. She denies any fevers or chills. She does take a baby aspirin. Principal Diagnosis acute cholecystitis Discharge Exam awake/alert Respiratory normal respiratory effort Gastrointestinal (Abdomen) Inspection/Auscultation: + abdominal surgical incision (c/d/i) Percussion/Palpation: + abdomen tender (expected minor incisional discomfort to palpation) and abdomen soft Discharge Data Allergies Allergy/AdvReac Type Severity Reaction Status Date / Time acetaminophen Allergy Mild Verified 11/09/22 16:29 carbamazepine Allergy Mild Verified 11/09/22 16:29 Consultations 11/09/22 14:25 Consult General Surgery Routine 11/11/22 15:02 Consult Hospitalist Routine Procedures Performed Operation Date: 11/09/22 17:25 <No data on this case meets the specified criteria> Operation Date: 11/10/22 09:45 Actual Procedures p Laparoscopic Cholecystectomy(Not Applicable) - Elder Monroy, DO Hospital Course (1) Acute cholecystitis: This is a 77yF who presented to the [facility] ED on 11/09/22 with complaints of right upper quadrant abdominal pain. She was referred to the ER after she had an outpatient RUQ US revealing findings concerning for acute cholecystitis. WBC 17. She was admitted under the surgical service to the med/surg unit and was kept NPO with IVF and started on IV abx. She was booked for surgical intervention the following day. On 11/10/22 the patient went to the OR for a laparoscopic cholecystectomy with Dr. Monroy. The patient tolerated the procedure well, see op note for full details. She recovered in the PACU and was transferred to the surgical unit in stable condition. She was given a clear liquid diet and pain controlled with prn medications. On POD#1 her diet was advanced as tolerated. Pain remained controlled. The hospitalist were consulted as patient had some post op hypoxia they helped us to work-up. CXR revealed some mild pulmonary edema, therefore IVF were stopped and she was given some lasix. The patient was ultimately weaned to room air without issue. On POD#2 the patient was deemed stable for discharge to home. She was given a course of oral antibiotics to complete at home and instructed to follow up with Dr. Monroy in clinic within 2 weeks. Total Time Total Time Spent Total Time Spent (In Minutes): 15 Discharge Plan Discharge Items Patient Disposition: Home - Self-Care Reason For Visit: CHOLECYSTITIS Discharge Diagnosis: laparoscopic cholecystectomy Activity: Per Instructions section Lifting: No more than 10 pounds Bathing Comment: may shower; no soaking in tubs/pools Exercise/Sports: Wait until after follow-up appointment Driving/Machine Use: no driving while taking narcotics for pain Non-emergency contact: Surgeon Call non-emergency contact if: you have any medication questions, your symptoms worsen, your pain is not controlled, your pain is concerning for you, you have a fever, your temperature is above 101.5, your wound has increased redness, your wound has increased drainage and your wound pain has increased Follow-up/Referrals: Elder Monroy DO [Physician] - (Please call to schedule follow up in clinic within 2 weeks ) Teresa Cam DO [Primary Care Provider] - Diet: Regular Addtl Attending Provider Instructions: You may remove your outer surgical dressings on 11/11/22 and shower. You will have small white bandages on underneath called steri strips. you may shower with these on. they will tend to fall off on their own within 7-10 days. Please complete the full course of antibiotic prescribed to you You may purchase ibuprofen over the counter if needed for additional pain control over the next few days. Take per manufacturers instructions. Pending Studies at Discharge: Yes Studies:: surgical pathology Stand-Alone Forms: My [employer]), Smoking Cessation Medications and DC Order Prescriptions: New oxycodone 5 mg tablet 5 - 10 mg PO .[id number] PRN (Reason: pain, for initial therapy, max 6 tabs per day) Qty: 15 0RF amoxicillin-pot clavulanate 875-125 mg tablet 1 tab PO BID Qty: 14 0RF potassium chloride 20 mEq tablet extended release 40 meq PO DAILY 3 Days Qty: 6 0RF Continued omeprazole 20 mg capsule,delayed release(DR/EC) 20 mg PO QAM escitalopram oxalate 20 mg tablet 20 mg PO DAILY valacyclovir 1 gram tablet 1,000 mg PO AMPM Centrum Silver Women 8 mg iron-400 mcg-300 mcg Tablet 1 tab PO DAILY ascorbic acid (vitamin C) 1,000 mg Tablet 1 g PO DAILY glucosamine [id number] 400-200-333 mg Tablet 1 tab PO DAILY lysine 1,000 mg Tablet 1,000 mg PO DAILY cranberry 450 mg Tablet 450 mg PO DAILY aspirin 81 mg Tablet,Delayed Release (Dr/Ec) 81 mg PO DAILY calcium carbonate-vitamin D3 [Calcium 600 + D(3)] 600 mg-10 mcg (400 unit) Tablet 1 tab PO BID Acidophilus Capsule 100 mg PO DAILY Discharge Orders: Discharge Order (Routine); Ordered 11/12/22 Ordered By: Danitza Kolb Admission Data Admit Date/Time: 11/12/22 10:06 Attending Provider: Elder Monroy Admit Provider: Elder Monroy Primary Care Provider: Teresa Cam Other Providers: Elder Monroy ; Jennifer Franco ; Adam Spencer Other Interventions: Discharge Summary Assessment (RN) Last Done: 11/12/22 10:14 Coding Level of Care Code HOSP INP/OBS DISCH 30 MIN/LESS Diagnoses Acute cholecystitis K81.0
== END 2022-11-12 11:29 | disposition home or self-care (01) ==
LOC: 3N 12:49 → ED 12:49 → 3N 16:58
DX: Z79.82 Long term (current) use of aspirin; F41.9 Anxiety disorder, unspecified; Z20.822 Contact with and (suspected) exposure to COVID-19; J98.11 Atelectasis; K80.12 Calculus of gallbladder with acute and chronic cholecystitis without obstruction; Z88.1 Allergy status to other antibiotic agents; Z79.899 Other long term (current) drug therapy; Z88.6 Allergy status to analgesic agent; K82.A1 Gangrene of gallbladder in cholecystitis; R09.02 Hypoxemia; I25.10 Atherosclerotic heart disease of native coronary artery without angina pectoris; F32.A Depression, unspecified